=== PATIENT | female | born 1955 | race Caucasian/White ===

== ENCOUNTER 2019-11-01 19:45 | Inpatient (IN) ==
[2019-11-01] MEDS ORDERED: ONDANSETRON 4 MG/2 ML VIAL IV PRN (22:22)
[2019-11-01] MEDS ORDERED: GLUCAGON 1 MG VIAL IM PRN (22:22)
[2019-11-01] MEDS ORDERED: DEXTROSE 50% 25 GM/50 ML VIAL IV PRN (22:22)
[2019-11-01] MEDS ORDERED: ZALEPLON 5 MG CAPSULE PO PRN (22:22)
[2019-11-01] MEDS ORDERED: hydrALAZINE 20 MG/1 ML VIAL IV PRN (22:22)
[2019-11-01] MEDS ORDERED: ACETAMINOPHEN 325 MG TABLET PO PRN (22:22)
[2019-11-01] MEDS ORDERED: ALBUTEROL 2.5 MG/3 ML NEB RESP TX PRN (22:22)
[2019-11-01] MEDS ORDERED: ACETAMINOPHEN/CODEINE 300-30 MG TABLET PO PRN (22:38)
[2019-11-01 22:59] LABS: ABG Base Excess 2.6 MMOL/L (-2.5-2.5); ABG HCO3 26.6 MMOL/L (20-26); ABG Oxygen Saturation 94.2 % (95-100); ABG PCO2 38.7 MM HG (35-48); ABG PH 7.446 (7.35-7.45); ABG PO2 72.4 MM HG (80-95); Allen Test Positive; Pt O2 Delivery Device Other
[2019-11-01] MEDS ORDERED: methylPREDNISolone SOD SUC 125 MG/2 ML VIAL IV SCH (23:00)
[2019-11-01] MEDS ORDERED: GABAPENTIN 600 MG TABLET PO SCH (23:00)
[2019-11-01 23:28] LABS: INR 1.1; PT Patient Result 11.6 SECS (9.8-11.9)
[2019-11-01 23:37] LABS: Ferritin 548.5 ng/ml (8-252)
[2019-11-02 05:08] LABS: Basophils % 0.2 % (0.0-0.8); Hematocrit 39.7 VOL% (35.7-47.0); Immature Granulocytes % 0.6 %; Immature Granulocytes Absolute 0.04 #; Lymphocytes # 0.8 10*3/uL (1.4-4.0); Lymphocytes % 12.7 % (21.3-54.2); Mean Corpuscular HGB Conc 32.7 GM/DL (32-36); Mean Corpuscular Volume 82.2 FL (87-102); Mean Platelet Volume 11.3 FL (9.6-12.0); Monocytes % 2.6 % (1.7-12.7); Neutrophils % 83.9 % (38.7-73.9); Platelet Count 179 T/CUMM (130-400); Red Blood Count 4.83 MC/CUMM (3.8-5.5); Red Cell Distribution Width 12.8 % (9.3-17.3); White Blood Count 6.2 T/CUMM (4-12)
[2019-11-02 05:22] LABS: Calcium 8.6 MG/DL (8.5-10.1); Osmolality,Calculated 276.7 MOS/KG (273-304)
[2019-11-02] MEDS ORDERED: POTASSIUM CHLORIDE 20 MEQ TABLET PO ONE (06:21)
[2019-11-02] MEDS: LEVOTHYROXINE 150 MCG TABLET PO SCH (06:25)
[2019-11-02 06:42] LABS: Hypochromasia 1+; Lymphocytes 5 % (20-55); Microcytosis 2+; Platelet Estimate Normal; Segmented Neutrophils 94 % (50-85); Total Cells Counted 100
[2019-11-02 06:43] LABS: Polychromasia Slight
[2019-11-02] MEDS: carvediloL 3.125 MG TABLET PO SCH ×2 (09:32→16:35)
[2019-11-02] MEDS: AZITHROMYCIN 250 MG TABLET PO SCH ×2 (09:32)
[2019-11-02] MEDS: ASPIRIN EC 81 MG TABLET PO SCH (09:32)
[2019-11-02] MEDS: MAGNESIUM OXIDE 400 MG TABLET PO SCH ×2 (09:32→21:45)
[2019-11-02] MEDS: PANTOPRAZOLE 40 MG TABLET PO SCH (09:32)
[2019-11-02] MEDS: GABAPENTIN 600 MG TABLET PO SCH ×2 (09:32→21:45)
[2019-11-02] MEDS: ATORVASTATIN 40 MG TABLET PO SCH (09:32)
[2019-11-02] MEDS: DULoxetine 30 MG CAPSULE PO SCH (09:32)
[2019-11-02] MEDS: BENZONATATE 100 MG CAPSULE PO SCH ×3 (09:32→21:45)
[2019-11-02] MEDS: ENOXAPARIN 100 MG/ML SYRINGE SUBCUT SCH ×3 (09:32→21:46)
[2019-11-02] MEDS: CHOLECALCIFEROL 1,000 UNIT TABLET PO SCH (09:32)
[2019-11-02] MEDS: INSULIN REGULAR 100 UNIT/ML SUBCUT SCH ×4 (09:32→21:45)
[2019-11-02] MEDS: POTASSIUM CHLORIDE 20 MEQ TABLET PO SCH ×2 (09:32→21:45)
[2019-11-02] MEDS: INSULIN ASPART PROTAMINE/ASPART 70/30 100 UNIT/ML SUBCUT SCH (09:43)
[2019-11-02] MEDS: DEXAMETHASONE 4 MG/1 ML VIAL IV SCH (10:48)
[2019-11-02] MEDS ORDERED: SODIUM CHLORIDE 0.9% 1,000 ML IV PRN (11:59)
[2019-11-02] MEDS ORDERED: LACTATED RINGERS 500 ML IV ONE (17:12)
[2019-11-02] MEDS: LACTATED RINGERS 1,000 ML IV SCH (18:12)
[2019-11-02] MEDS: cefTRIAXone 1,000 MG in SYRINGE 1 EACH IV SCH ×2 (23:13)
[2019-11-03] MEDS: LACTATED RINGERS 1,000 ML IV SCH ×3 (02:34→15:54)
[2019-11-03 04:39] LABS: Basophils % 0.1 % (0.0-0.8); Hematocrit 42.4 VOL% (35.7-47.0); Hemoglobin 13.9 GM/DL (12.0-16.0); Immature Granulocytes % 0.5 %; Immature Granulocytes Absolute 0.06 #; Lymphocytes # 1.2 10*3/uL (1.4-4.0); Lymphocytes % 10.5 % (21.3-54.2); Mean Corpuscular HGB Conc 32.8 GM/DL (32-36); Mean Corpuscular Volume 83.1 FL (87-102); Mean Platelet Volume 12.1 FL (9.6-12.0); Monocytes % 3.7 % (1.7-12.7); Neutrophils % 85.2 % (38.7-73.9); Platelet Count 244 T/CUMM (130-400); Red Cell Distribution Width 12.7 % (9.3-17.3)
[2019-11-03 04:56] LABS: ABG Base Excess -2.7 MMOL/L (-2.5-2.5); ABG HCO3 22.2 MMOL/L (20-26); ABG Oxygen Saturation 98.3 % (95-100); ABG PCO2 38.3 MM HG (35-48); ABG PH 7.372 (7.35-7.45); ABG TCO2 19.3 MMOL/L (23-27); Allen Test Positive; Pt O2 Delivery Device Other
[2019-11-03 05:05] LABS: Albumin 2.9 G/DL (3.4-5.0); Bilirubin,Total 0.5 MG/DL (0.2-1.0); Calcium 8.9 MG/DL (8.5-10.1); Osmolality,Calculated 289.2 MOS/KG (273-304)
[2019-11-03] MEDS: LEVOTHYROXINE 150 MCG TABLET PO SCH (05:49)
[2019-11-03 06:14] LABS: Platelet Estimate Normal
[2019-11-03] MEDS: ENOXAPARIN 100 MG/ML SYRINGE SUBCUT SCH (08:15)
[2019-11-03] MEDS: ASPIRIN EC 81 MG TABLET PO SCH (08:25)
[2019-11-03] MEDS: INSULIN REGULAR 100 UNIT/ML SUBCUT SCH ×4 (08:25→21:14)
[2019-11-03] MEDS: MAGNESIUM OXIDE 400 MG TABLET PO SCH ×2 (08:25→21:14)
[2019-11-03] MEDS: AZITHROMYCIN 250 MG TABLET PO SCH (08:25)
[2019-11-03] MEDS: PANTOPRAZOLE 40 MG TABLET PO SCH (08:25)
[2019-11-03] MEDS: carvediloL 3.125 MG TABLET PO SCH (08:25)
[2019-11-03] MEDS: BENZONATATE 100 MG CAPSULE PO SCH ×3 (08:25→21:14)
[2019-11-03] MEDS: GABAPENTIN 600 MG TABLET PO SCH (08:25)
[2019-11-03] MEDS: DULoxetine 30 MG CAPSULE PO SCH (08:25)
[2019-11-03] MEDS: CHOLECALCIFEROL 1,000 UNIT TABLET PO SCH (08:25)
[2019-11-03] MEDS: POTASSIUM CHLORIDE 20 MEQ TABLET PO SCH ×2 (08:25→21:14)
[2019-11-03] MEDS: INSULIN ASPART PROTAMINE/ASPART 70/30 100 UNIT/ML SUBCUT SCH (08:25)
[2019-11-03] MEDS: DEXAMETHASONE 4 MG/1 ML VIAL IV SCH (08:25)
[2019-11-03] MEDS: ATORVASTATIN 40 MG TABLET PO SCH (08:25)
[2019-11-03] MEDS ORDERED: SODIUM CHLORIDE 0.9% 1,000 ML IV ONE (10:45)
[2019-11-03 12:22] LABS: Apearance,Urine CLEAR (Clear); Bacteria,Urine Occasional /HPF (Few); Bilirubin,Urine Negative (Negative); Blood, Urine Negative (Negative); Glucose,Urine (UA) Negative (Negative); Hyaline Casts,Urine 8 /LPF (0-3); Ketones,Urine Negative (Negative); Mucus,Urine Occasional /LPF (Occasional); Nitrite,Urine Negative (Negative); Protein,Urine Negative; RBC,Urine <1 /HPF (0-4); Squamous Epithelial Cell,Urine Occasional /HPF (0-10); Urine Color Yellow (Yellow); Urine Specific Gravity 1.012 (1.001-1.035); Urine Urobilinogen < 2.0 EU/DL (0.2-1.0); WBC,Urine 2 /HPF (0-6)
[2019-11-03] MEDS: LOPERAMIDE 1 MG/7.5 ML 30 ML BOTTLE PO PRN ×3 (13:05→21:15)
[2019-11-03] MEDS: HEPARIN DRIP 25,000 UNITS/500 ML PREMIX IV SCH (13:05)
[2019-11-03] MEDS: GABAPENTIN 300 MG CAPSULE PO SCH (21:14)
[2019-11-03] MEDS: diphenhydrAMINE CAP 50 MG CAPSULE PO PRN (21:15)
[2019-11-03] MEDS ORDERED: ZINC OXIDE 16% PASTE 57 GM TUBE TOP PRN (21:19)
[2019-11-03] MEDS: cefTRIAXone 1,000 MG in SYRINGE 1 EACH IV SCH (21:38)
[2019-11-04] MEDS ORDERED: FLUCONAZOLE 200 MG TABLET PO ONE
[2019-11-04 06:01] LABS: Basophils % 0.1 % (0.0-0.8); Hematocrit 37.1 VOL% (35.7-47.0); Hemoglobin 12.2 GM/DL (12.0-16.0); Immature Granulocytes % 0.8 %; Immature Granulocytes Absolute 0.06 #; Lymphocytes # 0.8 10*3/uL (1.4-4.0); Lymphocytes % 10.3 % (21.3-54.2); Mean Corpuscular HGB Conc 32.9 GM/DL (32-36); Mean Corpuscular Volume 84.1 FL (87-102); Mean Platelet Volume 11.7 FL (9.6-12.0); Monocytes % 5.6 % (1.7-12.7); Neutrophils % 83.2 % (38.7-73.9); Platelet Count 201 T/CUMM (130-400); Red Blood Count 4.41 MC/CUMM (3.8-5.5); Red Cell Distribution Width 12.9 % (9.3-17.3); White Blood Count 7.9 T/CUMM (4-12)
[2019-11-04 06:21] LABS: Albumin 2.5 G/DL (3.4-5.0); Bilirubin,Total 0.6 MG/DL (0.2-1.0); Calcium 8.2 MG/DL (8.5-10.1); Osmolality,Calculated 294.5 MOS/KG (273-304); Total Protein 5.9 G/DL (6.4-8.3)
[2019-11-04] MEDS: INSULIN REGULAR 100 UNIT/ML SUBCUT SCH ×4 (08:00→22:04)
[2019-11-04] MEDS: LEVOTHYROXINE 150 MCG TABLET PO SCH (08:32)
[2019-11-04] MEDS: LACTATED RINGERS 1,000 ML IV SCH ×3 (08:32→22:07)
[2019-11-04] MEDS: DEXAMETHASONE 4 MG/1 ML VIAL IV SCH (08:33)
[2019-11-04] MEDS: AZITHROMYCIN 250 MG TABLET PO SCH (08:34)
[2019-11-04] MEDS: MAGNESIUM OXIDE 400 MG TABLET PO SCH (08:34)
[2019-11-04] MEDS: ATORVASTATIN 40 MG TABLET PO SCH (08:34)
[2019-11-04] MEDS: INSULIN ASPART PROTAMINE/ASPART 70/30 100 UNIT/ML SUBCUT SCH (08:34)
[2019-11-04] MEDS: GABAPENTIN 300 MG CAPSULE PO SCH ×2 (08:34→21:35)
[2019-11-04] MEDS: PANTOPRAZOLE 40 MG TABLET PO SCH (08:34)
[2019-11-04] MEDS: BENZONATATE 100 MG CAPSULE PO SCH ×3 (08:34→21:35)
[2019-11-04] MEDS: CHOLECALCIFEROL 1,000 UNIT TABLET PO SCH (08:34)
[2019-11-04] MEDS: DULoxetine 30 MG CAPSULE PO SCH (08:34)
[2019-11-04] MEDS: ASPIRIN EC 81 MG TABLET PO SCH (08:35)
[2019-11-04] MEDS: POTASSIUM CHLORIDE 20 MEQ TABLET PO SCH ×2 (08:35→21:35)
[2019-11-04] MEDS: HEPARIN DRIP 25,000 UNITS/500 ML PREMIX IV SCH (09:10)
[2019-11-04 09:58] LABS: ABG HCO3 25.2 MMOL/L (20-26); ABG Oxygen Saturation 93.8 % (95-100); ABG PCO2 37.9 MM HG (35-48); ABG PO2 69.6 MM HG (80-95)
[2019-11-04] MEDS: HEPARIN 5,000 UNIT/1 ML VIAL SUBCUT SCH (16:25)
[2019-11-04] MEDS: LOPERAMIDE 1 MG/7.5 ML 30 ML BOTTLE PO PRN (21:34)
[2019-11-04] MEDS: cefTRIAXone 1,000 MG in SYRINGE 1 EACH IV SCH (21:35)
[2019-11-05] MEDS: LOPERAMIDE 1 MG/7.5 ML 30 ML BOTTLE PO PRN (02:34)
[2019-11-05] MEDS: HEPARIN 5,000 UNIT/1 ML VIAL SUBCUT SCH ×3 (02:46→17:14)
[2019-11-05 03:49] LABS: Hematocrit 35.7 VOL% (35.7-47.0); Hemoglobin 11.9 GM/DL (12.0-16.0); Immature Granulocytes % 0.5 %; Immature Granulocytes Absolute 0.03 #; Lymphocytes # 0.7 10*3/uL (1.4-4.0); Lymphocytes % 11.4 % (21.3-54.2); Mean Corpuscular HGB Conc 33.3 GM/DL (32-36); Mean Corpuscular Volume 82.3 FL (87-102); Mean Platelet Volume 11.8 FL (9.6-12.0); Monocytes % 6.9 % (1.7-12.7); Neutrophils % 81.2 % (38.7-73.9); Platelet Count 197 T/CUMM (130-400); Red Blood Count 4.34 MC/CUMM (3.8-5.5); Red Cell Distribution Width 12.9 % (9.3-17.3); White Blood Count 5.8 T/CUMM (4-12)
[2019-11-05 03:56] LABS: Calcium 8.5 MG/DL (8.5-10.1); Osmolality,Calculated 291.5 MOS/KG (273-304)
[2019-11-05 04:01] LABS: INR 1.1; PT Patient Result 11.4 SECS (9.8-11.9); Partial Thromboplastin Time 28.6 SECS (23.9-33.8)
[2019-11-05 04:02] LABS: ABG Base Excess 3.1 MMOL/L (-2.5-2.5); ABG HCO3 27.2 MMOL/L (20-26); ABG PCO2 40.8 MM HG (35-48); ABG PH 7.438 (7.35-7.45); ABG TCO2 24.3 MMOL/L (23-27); Allen Test Positive; Pt O2 Delivery Device Other
[2019-11-05] MEDS ORDERED: LEVOTHYROXINE 100 MCG TABLET PO SCH (06:30)
[2019-11-05] MEDS ORDERED: LEVOTHYROXINE 75 MCG TABLET PO ONE (07:30)
[2019-11-05] MEDS: INSULIN REGULAR 100 UNIT/ML SUBCUT SCH ×4 (07:58→20:39)
[2019-11-05] MEDS: AZITHROMYCIN 250 MG TABLET PO SCH (08:00)
[2019-11-05] MEDS: ASPIRIN EC 81 MG TABLET PO SCH (08:00)
[2019-11-05] MEDS: DULoxetine 30 MG CAPSULE PO SCH (08:00)
[2019-11-05] MEDS: BENZONATATE 100 MG CAPSULE PO SCH ×3 (08:00→20:40)
[2019-11-05] MEDS: ATORVASTATIN 40 MG TABLET PO SCH (08:01)
[2019-11-05] MEDS: BACLOFEN 10 MG TABLET PO PRN (08:01)
[2019-11-05] MEDS: GABAPENTIN 300 MG CAPSULE PO SCH ×2 (08:01→20:40)
[2019-11-05] MEDS: CHOLECALCIFEROL 1,000 UNIT TABLET PO SCH (08:01)
[2019-11-05] MEDS: DEXAMETHASONE 4 MG/1 ML VIAL IV SCH (08:01)
[2019-11-05] MEDS: POTASSIUM CHLORIDE 20 MEQ TABLET PO SCH ×2 (08:02→20:40)
[2019-11-05] MEDS: INSULIN ASPART PROTAMINE/ASPART 70/30 100 UNIT/ML SUBCUT SCH (09:05)
[2019-11-05] MEDS: LEVOTHYROXINE 150 MCG TABLET PO SCH (10:56)
[2019-11-05] MEDS: LACTATED RINGERS 1,000 ML IV SCH (20:31)
[2019-11-05] MEDS: cefTRIAXone 1,000 MG in SYRINGE 1 EACH IV SCH (20:39)
[2019-11-06] MEDS: HEPARIN 5,000 UNIT/1 ML VIAL SUBCUT SCH ×3 (00:41→18:24)
[2019-11-06] MEDS: LACTATED RINGERS 1,000 ML IV SCH ×3 (01:11→20:40)
[2019-11-06 03:01] LABS: ABG Base Excess 4.6 MMOL/L (-2.5-2.5); ABG HCO3 28.3 MMOL/L (20-26); ABG Oxygen Saturation 97.8 % (95-100); ABG PCO2 38.9 MM HG (35-48); ABG PO2 117.6 MM HG (80-95); ABG TCO2 29.5 MMOL/L (23-27); Allen Test Positive; Pt O2 Delivery Device Other
[2019-11-06 05:39] LABS: Eosinophils % 0.2 % (0.00-10.9); Hematocrit 34.7 VOL% (35.7-47.0); Hemoglobin 11.5 GM/DL (12.0-16.0); Immature Granulocytes % 0.8 %; Immature Granulocytes Absolute 0.05 #; Lymphocytes # 0.6 10*3/uL (1.4-4.0); Lymphocytes % 10.8 % (21.3-54.2); Mean Corpuscular HGB Conc 33.1 GM/DL (32-36); Mean Corpuscular Volume 82.2 FL (87-102); Mean Platelet Volume 12.3 FL (9.6-12.0); Monocytes % 7.4 % (1.7-12.7); Neutrophils % 80.8 % (38.7-73.9); Platelet Count 203 T/CUMM (130-400); Red Blood Count 4.22 MC/CUMM (3.8-5.5); Red Cell Distribution Width 12.7 % (9.3-17.3); White Blood Count 5.9 T/CUMM (4-12)
[2019-11-06 06:07] LABS: Calcium 8.5 MG/DL (8.5-10.1); Osmolality,Calculated 288.3 MOS/KG (273-304)
[2019-11-06 07:04] LABS: Calcium 8.4 MG/DL (8.5-10.1); Ferritin 402.4 ng/ml (8-252); Osmolality,Calculated 286.4 MOS/KG (273-304)
[2019-11-06] MEDS: INSULIN REGULAR 100 UNIT/ML SUBCUT SCH ×4 (08:21→20:41)
[2019-11-06] MEDS: DEXAMETHASONE 4 MG/1 ML VIAL IV SCH (08:23)
[2019-11-06] MEDS: BACLOFEN 10 MG TABLET PO PRN (08:24)
[2019-11-06] MEDS: LEVOTHYROXINE 150 MCG TABLET PO SCH (08:24)
[2019-11-06] MEDS: BENZONATATE 100 MG CAPSULE PO SCH ×3 (08:24→20:41)
[2019-11-06] MEDS: INSULIN ASPART PROTAMINE/ASPART 70/30 100 UNIT/ML SUBCUT SCH (08:24)
[2019-11-06] MEDS: ATORVASTATIN 40 MG TABLET PO SCH (08:24)
[2019-11-06] MEDS: CHOLECALCIFEROL 1,000 UNIT TABLET PO SCH (08:24)
[2019-11-06] MEDS: POTASSIUM CHLORIDE 20 MEQ TABLET PO SCH ×2 (08:24→20:41)
[2019-11-06] MEDS: DULoxetine 30 MG CAPSULE PO SCH (08:24)
[2019-11-06] MEDS: GABAPENTIN 300 MG CAPSULE PO SCH ×2 (08:25→20:41)
[2019-11-06] MEDS: ASPIRIN EC 81 MG TABLET PO SCH (09:23)
[2019-11-06] MEDS: cefTRIAXone 1,000 MG in SYRINGE 1 EACH IV SCH (20:40)
[2019-11-06] MEDS: diphenhydrAMINE CAP 50 MG CAPSULE PO PRN (20:41)
[2019-11-07] MEDS: HEPARIN 5,000 UNIT/1 ML VIAL SUBCUT SCH ×3 (00:13→16:35)
[2019-11-07] MEDS: LACTATED RINGERS 1,000 ML IV SCH ×2 (04:05→16:44)
[2019-11-07 05:08] LABS: Basophils % 0.2 % (0.0-0.8); Eosinophils % 0.7 % (0.00-10.9); Hematocrit 35.1 VOL% (35.7-47.0); Hemoglobin 11.2 GM/DL (12.0-16.0); Immature Granulocytes % 1.2 %; Immature Granulocytes Absolute 0.07 #; Lymphocytes % 17.3 % (21.3-54.2); Mean Corpuscular HGB Conc 31.9 GM/DL (32-36); Mean Corpuscular Volume 84.4 FL (87-102); Mean Platelet Volume 11.5 FL (9.6-12.0); Monocytes % 9.3 % (1.7-12.7); Neutrophils % 71.3 % (38.7-73.9); Platelet Count 214 T/CUMM (130-400); Red Blood Count 4.16 MC/CUMM (3.8-5.5); Red Cell Distribution Width 12.9 % (9.3-17.3); White Blood Count 5.8 T/CUMM (4-12)
[2019-11-07 05:31] LABS: Blood Urea Nitrogen 28 MG/DL (7-18); Calcium 8.8 MG/DL (8.5-10.1); Estimated Glom Filtration Rate 96 ML/MIN; Ferritin 347.3 ng/ml (8-252); Glucose 128 MG/DL (74-106); Osmolality,Calculated 284.5 MOS/KG (273-304)
[2019-11-07 05:38] LABS: Osmolality,Calculated 288.3 MOS/KG (273-304)
[2019-11-07] MEDS: INSULIN REGULAR 100 UNIT/ML SUBCUT SCH ×4 (08:22→21:40)
[2019-11-07] MEDS: INSULIN ASPART PROTAMINE/ASPART 70/30 100 UNIT/ML SUBCUT SCH (08:48)
[2019-11-07] MEDS: DULoxetine 30 MG CAPSULE PO SCH (08:49)
[2019-11-07] MEDS: ASPIRIN EC 81 MG TABLET PO SCH (08:49)
[2019-11-07] MEDS: DEXAMETHASONE 4 MG/1 ML VIAL IV SCH (08:49)
[2019-11-07] MEDS: LEVOTHYROXINE 150 MCG TABLET PO SCH (08:50)
[2019-11-07] MEDS: POTASSIUM CHLORIDE 20 MEQ TABLET PO SCH ×2 (08:50→21:46)
[2019-11-07] MEDS: GABAPENTIN 300 MG CAPSULE PO SCH ×2 (08:50→21:41)
[2019-11-07] MEDS: BENZONATATE 100 MG CAPSULE PO SCH ×3 (08:50→21:41)
[2019-11-07] MEDS: ATORVASTATIN 40 MG TABLET PO SCH (08:50)
[2019-11-07] MEDS: CHOLECALCIFEROL 1,000 UNIT TABLET PO SCH (08:51)
[2019-11-07] MEDS: cefTRIAXone 1,000 MG in SYRINGE 1 EACH IV SCH (21:41)
[2019-11-07] MEDS: diphenhydrAMINE CAP 50 MG CAPSULE PO PRN (22:20)
[2019-11-08] MEDS: HEPARIN 5,000 UNIT/1 ML VIAL SUBCUT SCH ×3 (00:41→16:30)
[2019-11-08] MEDS: LACTATED RINGERS 1,000 ML IV SCH ×3 (00:59→22:58)
[2019-11-08 05:30] LABS: Blood Urea Nitrogen 25 MG/DL (7-18); Calcium 9.1 MG/DL (8.5-10.1); Estimated Glom Filtration Rate 96 ML/MIN; Ferritin 297.9 ng/ml (8-252); Glucose 155 MG/DL (74-106); Osmolality,Calculated 283.5 MOS/KG (273-304)
[2019-11-08] MEDS: INSULIN REGULAR 100 UNIT/ML SUBCUT SCH ×4 (07:59→21:45)
[2019-11-08] MEDS: INSULIN ASPART PROTAMINE/ASPART 70/30 100 UNIT/ML SUBCUT SCH (08:40)
[2019-11-08] MEDS: DEXAMETHASONE 4 MG/1 ML VIAL IV SCH (08:40)
[2019-11-08] MEDS: BENZONATATE 100 MG CAPSULE PO SCH ×3 (08:41→21:45)
[2019-11-08] MEDS: ASPIRIN EC 81 MG TABLET PO SCH (08:41)
[2019-11-08] MEDS: DULoxetine 30 MG CAPSULE PO SCH (08:41)
[2019-11-08] MEDS: ATORVASTATIN 40 MG TABLET PO SCH (08:41)
[2019-11-08] MEDS: POTASSIUM CHLORIDE 20 MEQ TABLET PO SCH ×2 (08:41→21:45)
[2019-11-08] MEDS: GABAPENTIN 300 MG CAPSULE PO SCH ×2 (08:41→21:45)
[2019-11-08] MEDS: CHOLECALCIFEROL 1,000 UNIT TABLET PO SCH (08:42)
[2019-11-08] MEDS: LEVOTHYROXINE 150 MCG TABLET PO SCH (08:44)
[2019-11-08] MEDS: diphenhydrAMINE CAP 50 MG CAPSULE PO PRN (21:45)
[2019-11-08] MEDS: cefTRIAXone 1,000 MG in SYRINGE 1 EACH IV SCH (22:59)
[2019-11-09] MEDS: HEPARIN 5,000 UNIT/1 ML VIAL SUBCUT SCH (01:22)
[2019-11-09 05:38] LABS: Blood Urea Nitrogen 21 MG/DL (7-18); Calcium 8.7 MG/DL (8.5-10.1); Estimated Glom Filtration Rate 96 ML/MIN; Ferritin 270.5 ng/ml (8-252); Glucose 170 MG/DL (74-106); Osmolality,Calculated 287.3 MOS/KG (273-304)
[2019-11-09] MEDS: DEXAMETHASONE 4 MG/1 ML VIAL IV SCH (08:54)
[2019-11-09] MEDS: LEVOTHYROXINE 150 MCG TABLET PO SCH (08:55)
[2019-11-09] MEDS: POTASSIUM CHLORIDE 20 MEQ TABLET PO SCH ×2 (08:55→21:36)
[2019-11-09] MEDS: INSULIN ASPART PROTAMINE/ASPART 70/30 100 UNIT/ML SUBCUT SCH (08:55)
[2019-11-09] MEDS: DULoxetine 30 MG CAPSULE PO SCH (08:55)
[2019-11-09] MEDS: GABAPENTIN 300 MG CAPSULE PO SCH ×2 (08:55→21:36)
[2019-11-09] MEDS: BENZONATATE 100 MG CAPSULE PO SCH ×3 (08:55→21:37)
[2019-11-09] MEDS: CHOLECALCIFEROL 1,000 UNIT TABLET PO SCH (08:56)
[2019-11-09] MEDS: ATORVASTATIN 40 MG TABLET PO SCH (08:56)
[2019-11-09] MEDS: ASPIRIN EC 81 MG TABLET PO SCH (08:56)
[2019-11-09] MEDS: INSULIN REGULAR 100 UNIT/ML SUBCUT SCH ×4 (09:38→21:37)
[2019-11-09] MEDS: ENOXAPARIN 60 MG/0.6 ML SYRINGE SUBCUT SCH ×2 (11:28→21:36)
[2019-11-09] MEDS ORDERED: REMDESIVIR 200 MG in SODIUM CHLORIDE 0.9% 210 ML IV ONE (15:00)
[2019-11-09] MEDS: diphenhydrAMINE CAP 50 MG CAPSULE PO PRN (21:37)
[2019-11-10] MEDS: LACTATED RINGERS 1,000 ML IV SCH ×3 (06:12→21:51)
[2019-11-10 06:46] LABS: Albumin 2.8 G/DL (3.4-5.0); Bilirubin,Total 0.8 MG/DL (0.2-1.0); Calcium 9.4 MG/DL (8.5-10.1); Total Protein 5.9 G/DL (6.4-8.3)
[2019-11-10 06:55] LABS: Ferritin 258.9 ng/ml (8-252)
[2019-11-10 07:01] LABS: Osmolality,Calculated 284.3 MOS/KG (273-304)
[2019-11-10] MEDS: INSULIN REGULAR 100 UNIT/ML SUBCUT SCH ×4 (07:42→21:51)
[2019-11-10] MEDS: GABAPENTIN 300 MG CAPSULE PO SCH ×2 (08:40→20:56)
[2019-11-10] MEDS: DULoxetine 30 MG CAPSULE PO SCH (08:40)
[2019-11-10] MEDS: LEVOTHYROXINE 150 MCG TABLET PO SCH (08:40)
[2019-11-10] MEDS: ATORVASTATIN 40 MG TABLET PO SCH (08:40)
[2019-11-10] MEDS: INSULIN ASPART PROTAMINE/ASPART 70/30 100 UNIT/ML SUBCUT SCH (08:41)
[2019-11-10] MEDS: ASPIRIN EC 81 MG TABLET PO SCH (08:41)
[2019-11-10] MEDS: POTASSIUM CHLORIDE 20 MEQ TABLET PO SCH ×2 (08:41→20:56)
[2019-11-10] MEDS: CHOLECALCIFEROL 1,000 UNIT TABLET PO SCH (08:41)
[2019-11-10] MEDS: BENZONATATE 100 MG CAPSULE PO SCH ×3 (08:41→20:56)
[2019-11-10] MEDS: DEXAMETHASONE 4 MG/1 ML VIAL IV SCH (08:42)
[2019-11-10] MEDS: ENOXAPARIN 60 MG/0.6 ML SYRINGE SUBCUT SCH ×2 (08:42→20:57)
[2019-11-10] MEDS: REMDESIVIR 100 MG in SODIUM CHLORIDE 0.9% 230 ML IV SCH (12:05)
[2019-11-10] MEDS: diphenhydrAMINE CAP 50 MG CAPSULE PO PRN (20:57)
[2019-11-11] MEDS: LACTATED RINGERS 1,000 ML IV SCH ×2 (04:04→21:00)
[2019-11-11 05:39] LABS: Basophils % 0.1 % (0.0-0.8); Eosinophils # 0.1 10*3/uL (0.0-0.87); Hematocrit 41.1 VOL% (35.7-47.0); Immature Granulocytes % 1.3 %; Immature Granulocytes Absolute 0.09 #; Lymphocytes # 1.6 10*3/uL (1.4-4.0); Lymphocytes % 23.5 % (21.3-54.2); Mean Corpuscular HGB Conc 31.6 GM/DL (32-36); Mean Platelet Volume 11.8 FL (9.6-12.0); Monocytes % 6.3 % (1.7-12.7); Neutrophils % 67.8 % (38.7-73.9); Platelet Count 246 T/CUMM (130-400); Red Blood Count 4.78 MC/CUMM (3.8-5.5); Red Cell Distribution Width 13.2 % (9.3-17.3)
[2019-11-11 05:59] LABS: Bilirubin,Total 1.1 MG/DL (0.2-1.0); Calcium 9.3 MG/DL (8.5-10.1); Osmolality,Calculated 284.3 MOS/KG (273-304); Total Protein 6.5 G/DL (6.4-8.3)
[2019-11-11] MEDS: POTASSIUM CHLORIDE 20 MEQ TABLET PO SCH ×2 (08:47→20:50)
[2019-11-11] MEDS: DEXAMETHASONE 4 MG/1 ML VIAL IV SCH (08:47)
[2019-11-11] MEDS: LEVOTHYROXINE 150 MCG TABLET PO SCH (08:47)
[2019-11-11] MEDS: CHOLECALCIFEROL 1,000 UNIT TABLET PO SCH (08:48)
[2019-11-11] MEDS: ATORVASTATIN 40 MG TABLET PO SCH (08:48)
[2019-11-11] MEDS: DULoxetine 30 MG CAPSULE PO SCH (08:48)
[2019-11-11] MEDS: GABAPENTIN 300 MG CAPSULE PO SCH ×2 (08:48→20:51)
[2019-11-11] MEDS: ASPIRIN EC 81 MG TABLET PO SCH (08:48)
[2019-11-11] MEDS: BENZONATATE 100 MG CAPSULE PO SCH ×3 (08:48→20:51)
[2019-11-11] MEDS: INSULIN REGULAR 100 UNIT/ML SUBCUT SCH ×4 (09:20→20:51)
[2019-11-11] MEDS: ENOXAPARIN 60 MG/0.6 ML SYRINGE SUBCUT SCH ×2 (10:12→21:00)
[2019-11-11] MEDS: REMDESIVIR 100 MG in SODIUM CHLORIDE 0.9% 230 ML IV SCH (12:05)
[2019-11-11] MEDS: INSULIN ASPART PROTAMINE/ASPART 70/30 100 UNIT/ML SUBCUT SCH (12:13)
[2019-11-11] MEDS: diphenhydrAMINE CAP 50 MG CAPSULE PO PRN (20:50)
[2019-11-12 05:28] LABS: Basophils % 0.2 % (0.0-0.8); Eosinophils % 0.5 % (0.00-10.9); Hematocrit 38.8 VOL% (35.7-47.0); Hemoglobin 12.4 GM/DL (12.0-16.0); Immature Granulocytes % 1.4 %; Immature Granulocytes Absolute 0.09 #; Lymphocytes # 1.5 10*3/uL (1.4-4.0); Lymphocytes % 22.2 % (21.3-54.2); Mean Corpuscular Volume 85.1 FL (87-102); Monocytes % 8.2 % (1.7-12.7); Neutrophils % 67.5 % (38.7-73.9); Platelet Count 214 T/CUMM (130-400); Red Blood Count 4.56 MC/CUMM (3.8-5.5); Red Cell Distribution Width 13.4 % (9.3-17.3); White Blood Count 6.6 T/CUMM (4-12)
[2019-11-12 05:52] LABS: Albumin 2.8 G/DL (3.4-5.0); Bilirubin,Total 1.1 MG/DL (0.2-1.0); Calcium 9.2 MG/DL (8.5-10.1); Osmolality,Calculated 286.3 MOS/KG (273-304); Total Protein 5.9 G/DL (6.4-8.3)
[2019-11-12] MEDS: INSULIN REGULAR 100 UNIT/ML SUBCUT SCH ×4 (07:32→20:44)
[2019-11-12] MEDS: DULoxetine 30 MG CAPSULE PO SCH (08:37)
[2019-11-12] MEDS: GABAPENTIN 300 MG CAPSULE PO SCH ×2 (08:38→20:21)
[2019-11-12] MEDS: LEVOTHYROXINE 150 MCG TABLET PO SCH (08:38)
[2019-11-12] MEDS: POTASSIUM CHLORIDE 20 MEQ TABLET PO SCH ×2 (08:38→20:20)
[2019-11-12] MEDS: ATORVASTATIN 40 MG TABLET PO SCH (08:38)
[2019-11-12] MEDS: BENZONATATE 100 MG CAPSULE PO SCH ×3 (08:38→20:21)
[2019-11-12] MEDS: CHOLECALCIFEROL 1,000 UNIT TABLET PO SCH (08:39)
[2019-11-12] MEDS: ENOXAPARIN 60 MG/0.6 ML SYRINGE SUBCUT SCH ×2 (08:39→20:21)
[2019-11-12] MEDS: INSULIN ASPART PROTAMINE/ASPART 70/30 100 UNIT/ML SUBCUT SCH (08:39)
[2019-11-12] MEDS: ASPIRIN EC 81 MG TABLET PO SCH (08:39)
[2019-11-12] MEDS: DEXAMETHASONE 4 MG/1 ML VIAL IV SCH (08:39)
[2019-11-12] MEDS: LACTATED RINGERS 1,000 ML IV SCH (08:40)
[2019-11-12] MEDS: REMDESIVIR 100 MG in SODIUM CHLORIDE 0.9% 230 ML IV SCH (13:12)
[2019-11-12] MEDS: diphenhydrAMINE CAP 50 MG CAPSULE PO PRN (21:06)
[2019-11-13 06:15] LABS: Basophils % 0.1 % (0.0-0.8); Eosinophils % 0.3 % (0.00-10.9); Hematocrit 39.3 VOL% (35.7-47.0); Immature Granulocytes Absolute 0.07 #; Lymphocytes # 1.6 10*3/uL (1.4-4.0); Lymphocytes % 23.8 % (21.3-54.2); Mean Corpuscular HGB Conc 33.1 GM/DL (32-36); Mean Corpuscular Volume 83.4 FL (87-102); Mean Platelet Volume 12.5 FL (9.6-12.0); Neutrophils % 67.8 % (38.7-73.9); Platelet Count 202 T/CUMM (130-400); Red Blood Count 4.71 MC/CUMM (3.8-5.5); Red Cell Distribution Width 13.6 % (9.3-17.3); White Blood Count 6.7 T/CUMM (4-12)
[2019-11-13 06:44] LABS: Bilirubin,Total 0.8 MG/DL (0.2-1.0); Calcium 9.1 MG/DL (8.5-10.1); Osmolality,Calculated 285.4 MOS/KG (273-304); Total Protein 6.3 G/DL (6.4-8.3)
[2019-11-13] MEDS: INSULIN REGULAR 100 UNIT/ML SUBCUT SCH ×2 (08:27→12:32)
[2019-11-13] MEDS: POTASSIUM CHLORIDE 20 MEQ TABLET PO SCH (08:28)
[2019-11-13] MEDS: ATORVASTATIN 40 MG TABLET PO SCH (08:28)
[2019-11-13] MEDS: BENZONATATE 100 MG CAPSULE PO SCH (08:28)
[2019-11-13] MEDS: DULoxetine 30 MG CAPSULE PO SCH (08:28)
[2019-11-13] MEDS: LEVOTHYROXINE 150 MCG TABLET PO SCH (08:29)
[2019-11-13] MEDS: INSULIN ASPART PROTAMINE/ASPART 70/30 100 UNIT/ML SUBCUT SCH (08:29)
[2019-11-13] MEDS: ENOXAPARIN 60 MG/0.6 ML SYRINGE SUBCUT SCH (08:29)
[2019-11-13] MEDS: CHOLECALCIFEROL 1,000 UNIT TABLET PO SCH (08:29)
[2019-11-13] MEDS: GABAPENTIN 300 MG CAPSULE PO SCH (08:29)
[2019-11-13] MEDS: ASPIRIN EC 81 MG TABLET PO SCH (08:29)
[2019-11-13 11:55] VITALS: BP 141/79
[2019-11-13] MEDS: REMDESIVIR 100 MG in SODIUM CHLORIDE 0.9% 230 ML IV SCH (12:32)
[2019-11-13] MEDS: LOPERAMIDE 1 MG/7.5 ML 30 ML BOTTLE PO PRN (13:17)
== END 2019-11-13 14:42 | disposition home health service (06) | DRG 177 ==
LOC: N.CC 22:10 → SUATTDRO 22:10 → N.2E 11-04 20:32
PROVIDERS: ADMIT Internal Medicine Cardiovascular Disease; ATTEND Internal Medicine